=== PATIENT | female | born 1990 | race Caucasian/White ===

== ENCOUNTER 2023-10-30 11:14 | Emergency (ER) | payer OTHER ==
[~2023-10-30] VITALS: Ht 170.2 cm; Wt 99.8 kg
[2023-10-30] MEDS ORDERED: TETRACAINE HCL 20 DR/ML DROPS OP STA (13:38)
[2023-10-30] MEDS ORDERED: GENTAMICIN SULFATE 0.15 MG/DR DROPS 5ML OP STA (13:56)
== END 2023-10-30 14:02 | disposition home or self-care (01) ==
LOC: ER 11:14
DX: H57.10 Ocular pain, unspecified eye (principal)